=== PATIENT | male | born 1980 | race Caucasian/White ===

== ENCOUNTER 2017-09-15 06:07 | Inpatient (IN) ==
--- NOTE | 2017-09-14 22:27 | Discharge Summary ---
<Katy Rocha - Last Filed: 09/15/17 08:28> Date of Encounter: 09/15/17 - Discharge Diagnosis (1) Arthritis of left hip Priority: Primary Status: Chronic (2) HTN (hypertension) Priority: Secondary Status: Chronic Qualifiers: Hypertension type: unspecified Qualified Code(s): I10 - Essential (primary ) hypertension (3) Gout Priority: Secondary Status: Chronic Qualifiers: Gout site: unspecified site Gout etiology: unspecified cause Chronicity: unspecified Qualified Code(s): M10.9 - Gout, unspecified (4) MINDY (obstructive sleep apnea) Priority: Secondary Status: Chronic (5) Obesity Priority: Secondary Status: Chronic Qualifiers: Obesity type: unspecified obesity type Obesity classification: unspecified obesity classification Serious obesity comorbidity presence: unspecified whether serious comorbidity present Qualified Code(s): E66.9 - Obesity, unspecified (6) Diabetes Priority: Secondary Status: Chronic Qualifiers: Diabetes mellitus type: type 2 Diabetes mellitus termite treater helper insulin use: without care home use Diabetes mellitus complication status: with unspecified complications Qualified Code(s): E11.8 - Type 2 diabetes mellitus with unspecified complications (7) Neuropathy Priority: Secondary Status: Chronic - Hospital Course Hospital course: Mr. Irwin is a 36 year old male - Time Spent with Patient Total time spent providing and/or coordinating discharge services: - Discharge Medications Home Medications: Aspirin Enteric Coated [Aspirin EC] 325 mg PO BID 10 Days #20 tablet. [Rx] Lisinopril/Hydrochlorothiazide [Zestoretic 20-12.5 mg Tablet] 1 tab PO BID 09/15 [History] Metformin HCl [Glucophage Xr] 750 mg PO BID 09/15/17 [History] Oxycodone HCl 5 mg PO Q6H PRN 7 Days #28 tablet 09/15/17 [Rx] Allergies/Adverse Reactions: 3 Allergy/AdvReac Type Severity Reaction Status Date / Time No Known Allergies Allergy Verified 09/15/17 07:16 Primary care physician: Nikhil Watts - Patient Status Disposition: Home, Self-Care Condition: Good - Discharge Instructions Follow Up With: Nikhil Watts [Primary Care Provider] - <Lincoln Marques - Last Filed: 09/16/17 06:43> Orders not resulted at time of discharge: Pending orders 09/15/17 01:00 XR hip complete LT [XR] Routine Hemoglobin and Hematocrit [HEME] Routine Date of Encounter: 09/16/17 Time of Encounter: 06:42 - Discharge Diagnosis (1) Status post total hip replacement, left Priority: Primary Status: Acute (2) Arthritis of left hip Priority: Primary Status: Chronic (3) HTN (hypertension) Priority: Secondary Status: Chronic Qualifiers: Hypertension type: unspecified Qualified Code(s): I10 - Essential (primary ) hypertension (4) Gout Priority: Secondary Status: Chronic Qualifiers: Gout site: unspecified site Gout etiology: unspecified cause Chronicity: unspecified Qualified Code(s): M10.9 - Gout, unspecified (5) Diabetes Priority: Secondary Status: Chronic Qualifiers: Diabetes mellitus type: type 2 Diabetes mellitus termite treater helper insulin use: without termite treater helper use Diabetes mellitus complication status: with unspecified complications Qualified Code(s): E11.8 - Type 2 diabetes mellitus with unspecified complications (6) Neuropathy Priority: Secondary Status: Chronic (7) MINDY (obstructive sleep apnea) Priority: Secondary Status: Chronic (8) Morbid obesity with BMI of 40.0-44.9, adult Priority: Secondary Status: Chronic - Hospital Course Hospital course: Mr. Irwin is a 36 year old male Status post left total hip The patient had an uneventful postoperative course. They received antibiotics and physical therapy and were discharged in stable condition. There will follow -up in the office in 2 weeks. - Time Spent with Patient Total time spent providing and/or coordinating discharge services: Primary care physician: Nikhil Watts - Patient Status Functional capacity at discharge: uses cane/walker Overall status at discharge: patient is progressing back to baseline
[2017-09-15] MEDS ORDERED: CeFAZolin Syr 3,000MG/30 ML 3,000 MG/30 ML SYRINGE IVPB ONE (06:20)
[2017-09-15] MEDS ORDERED: Ringers Solution, Lactated 1,000 ML IVC SCH ×2 (06:30→10:43)
--- NOTE | 2017-09-15 06:37 | History & Physical Report ---
Date of Encounter: 09/15/17 Time of Encounter: 06:37 24 Hour HP Update - Instructions Instructions: If the History and Physical is less than 30 days old and was completed prior to A.M. admission and or procedure and has NOT been updated on calendar day of procedure please complete this update prior to performing procedure. - Update Patient reports changes in Medical Condition: No Changes in examination, assessment, or condition: No Changes in Medication: No Preop tests/diagnostics Reviewed: Yes Surgery Remains Indicated: Yes Consent for Planned Operative Procedure(s) Verified: Yes - Pre-Operative Checklist Preoperative Checklist Indicated: No Prophylactic Antibiotic Ordered: Yes Is VTE Prophylaxis Indicated?: Yes
--- NOTE | 2017-09-15 07:03 | Anesthesia Evaluation PreOp ---
Date of Encounter: 09/15/17 Time of Encounter: 07:01 - Past History Planned Operation: Left MARTA Cardiac History: HTN Pulmonary History: MINDY Dx (CPAP) BABY SITTER History: Denies Any Significant HX Other Medical History: Diabetes Type II, Other (Gout, Obesity) Anesthesia History: No Prior Anesthetic Complications, Past Anesthesia (Wrist) Alcohol Use: none Drug use: none Medications and Allergies Aspirin Enteric Coated [Aspirin EC] 325 mg PO BID 10 Days #20 tablet. [Rx] Oxycodone HCl 5 mg PO Q6H PRN 7 Days #28 tablet 09/14/17 [Rx] Lisinopril/Hydrochlorothiazide [Zestoretic 20-12.5 mg Tablet] 1 tab PO BID 09/15 [History] Metformin HCl [Glucophage Xr] 750 mg PO BID 09/15/17 [History] 3 Allergy/AdvReac Type Severity Reaction Status Date / Time No Known Allergies Allergy Verified 09/11/17 09:46 - Meds/Allergy Pre-op Review Medications Reviewed: Yes Allergies Reviewed: Yes Beta Blockers on Current Med List: No Anesthesia Results - Labs Laboratory Tests 09/11/17 09/11/17 09/11/17 10:03 10:10 10:10 Hgb 14.5 Plt Count 312 PT 13.4 H INR 1.2 APTT 32.9 Potassium 4.4 Creatinine 0.81 Est GFR (Non-Af Amer) > 60 09/04/2017: HbA1c 8.4% - Imaging EKG: report reviewed (SINUS RHYTHM LOW QRS VOLTAGE IN PRECORDIAL LEADS INCOMPLETE RIGHT BUNDLE BRANCH BLOCK POSSIBLE ANTERIOR MYOCARDIAL INFARCTION, PROBABLY OLD INFERIOR MYOCARDIAL INFARCTION, OF INDETERMINATE AGE) Anesthesia Exam O2 Sat Height 1.88 m Height 1.88 m Height 1.88 m Weight 150.593 kg Weight 150.593 kg Weight 150.593 kg BMI 43 Vital Signs Temp Pulse Resp BP Pulse Ox 98.0 F 84 18 150/93 95 09/15/17 06:30 09/15/17 06:30 09/15/17 06:30 09/15/17 06:30 09/15/17 06:30 NPO (# of Hours): 8 - HEENT Mallampati: II Teeth: Normal Oral Opening: Greater than 3 - Cardiac Rhythm: Regular - Pulmonary Breath Sounds: bilateral Clear Anesthesia Assess/Plan ASA Score: 3 Modified [place] Scale for Level of Consciousness: Cooperative, oriented, and tranquil Anesthetic Plan: General, Regional (SAB with fentanyl or morphine) Monitoring Plan: Standard Monitors Recovery Plan: PACU Anes Supervising Prov Stmt: Patient informed and consented. Risks, benefits, and alternatives discussed. Patient wishes to proceed.
[2017-09-15] MEDS ORDERED: *HR* FentaNYL (PF) 100 MCG/2 ML VIAL ONE ×2 (07:05→08:09)
[2017-09-15] MEDS ORDERED: *HR* Propofol 200 MG/20 ML VIAL IVP ONE ×2 (07:06→07:48)
[2017-09-15] MEDS ORDERED: *HR* Midazolam HCl 2 MG/2 ML VIAL ONE (07:06)
[2017-09-15] MEDS ORDERED: Ondansetron 4 MG/2 ML VIAL ONE (07:09)
[2017-09-15] MEDS ORDERED: Lidocaine -MPF 2% 2 ML VIAL ONE (07:09)
[2017-09-15] MEDS ORDERED: Dexamethasone 4 MG/ML VIAL ONE (07:09)
[2017-09-15] MEDS ORDERED: *HR* Succinylcholine 200 MG/10 ML VIAL IVP ONE (07:09)
[2017-09-15] MEDS ORDERED: Lidocaine -MPF 4% 5 ML AMPUL ONE (07:13)
[2017-09-15] MEDS ORDERED: Morphine Sulfate/PF 5mg/10mL Vial ONE (07:21)
[2017-09-15] MEDS ORDERED: Ethanol\\Acetic Acid\\Na Ace\\Ben 1,000 ML IRRIG.SOLN IR ONE (07:22)
[2017-09-15] MEDS ORDERED: *HR* Midazolam HCl 5 MG/5 ML VIAL IVP ONE (07:29)
--- NOTE | 2017-09-15 08:30 | Anesthesia Procedures ---
Date of Encounter: 09/15/17 Time of Encounter: 08:28 Procedures: Anesthesia - Epidural/Spinal Patient ID/Chart reviewed: Yes Patient examined: Yes Consent Obtained: Yes Supplemental Oxygen: Nasal Cannula Sedation: Versed (mg): 5 Sedation: Fentanyl (mcg): 100 Site Prep: Aseptic Technique, 0.5% Chlorhexidine/Alcohol Patient position: upright Local Anesthetic: Lidocaine 1% (3) Amount of Local Anesthetic used: 3 Interspace Used: L3-L4 Loss of Resistance (ISABELLA): No Blood: No CSF: Yes Paresthesia: No Spinal Needle Gauge: 25 Spinal Dose: marcaine 0.5% 3cc, duramorph 0.25 Procedure: aseptic, tolerated well, VSS, CSF clear x4 quads, effective
[2017-09-15] MEDS ORDERED: *HR* OxyCODONE Immed Rel 5 MG TABLET PO PRN ×2 (08:31→10:43)
[2017-09-15] MEDS ORDERED: *HR* FentaNYL (PF) 100 MCG/2 ML VIAL IVP PRN (08:31)
--- NOTE | 2017-09-15 08:58 | Orthopedic Operative Note ---
Date of procedure: 09/15/17 Pre-op diagnosis: Hip arthritis left Post-op diagnosis: same Procedure: Procedure: Left Total Hip Replacment robotic-assisted Estimated blood loss: 200 cc Hardware: Metal and polyethylene replacement. [place] DM Cup: 58 cup Femoral size 9 stem Head: +8 head with Brandy Procedural Notes: Grade 4 arthritic changes femoral head acetabular socket, procedure performed with robotic assistance. 5 mm shorter operative first nonoperative leg is measured by CT scan Operative procedure: The patient was brought to the operating room and placed on the operating room table. After general anesthesia was administered the patient was placed in the lateral decubitus position with the operative leg up. All pressure points were padded appropriately and the head was stabilized in the neutral position. The operative extremity was prepped and draped in the sterile surgical fashion patient received IV antibiotic prior to skin incision. 3 Steinmann pins were placed in the iliac crest 3 cm proximal to the anterior superior iliac spine this was for the robotic-assisted sensor. This was done through a small 2 cm incision. A standard posterior approach is made to the operative hip, the incision was made through the skin and subcutaneous tissue hemostasis was obtained with Bovie cautery. Using careful sharp dissection the fascia was identified and incised exposing the external rotators. The femoral checkpoint was placed leg length was measured at this time utilizing robotic assistance. The external rotators were released off the greater trochanter and tagged with # 2 FiberWire suture. The capsule was T'd open and the hip was brought into internal rotation. Patient noted to have grade 4 arthritic changes femoral head. The femoral neck cut was made at the appropriate level roughly 15 mm proximal to the lesser trochanter aced on preoperative templating. An anterior capsulotomy was performed for the anterior retractor. Soft tissues removed from the acetabulum. Patient noted to have grade 4 arthritic changes acetabulum. The acetabulum checkpoint was placed confirmed. The acetabulum was then mapped with robotic assistance. Based on the preoperative plan the acetabulum was reamed in one step with a 57 reamer. The 58 acetabulum was impacted with robotic assistance and 41 degrees of abduction and 19 degrees of anteversion. The hip was brought back in to internal rotation and prepared with the box toe maker followed by the canal finder followed by the reaming process to a size 9/ 10 broaching process in 20 degrees anteversion. It was broached up to the appropriate size 9. Trial reduction revealed leg lengths close to normal. The femoral implant was impacted in place in 20 degrees of anteversion. Trial reduction found the hip to be stable with 8 head and Brandy. The trials were removed and the real implants were impacted in place. The hip was reduced, patient had robotic confirmed leg length of 8 mm longer than the contralateral side. The hip had excellent stability with forward flexion to 90 degrees adduction of 30 degrees and internal rotation of 60 degrees. The hip had no shuck. The hips after 2 minutes with a antibacterial solution. It was irrigated out with 2 L of pulse irrigation. The checkpoints were removed, Steinmann pins were removed. The hip was closed by the PA. The deep tissue was irrigated and closed deep with #1 PDS suture superficially with 0 PDS suture and skin was closed with Dermabond and zip tie. The patient was placed in a sterile dressing and abduction pillow. The patient was extubated and transferred to the recovery room in stable condition. Anesthesia: GETA Surgeon: Lincoln Marques Was there an executive administrative assistant present: Yes Drawstring Knotter: Ludmila Gutierrez Estimated blood loss (cc): 200 Condition: stable Disposition: PACU
[2017-09-15] MEDS ORDERED: Neostigmine Methylsulfate 3 MG/3 ML SYRINGE ONE (09:07)
[2017-09-15 10:01] LABS: Hematocrit 41.8 % (37.5-50.1); Hemoglobin 13.5 g/dL (12.9-16.9)
[2017-09-15] MEDS ORDERED: *HR* PHENYLEPHRINE 1,000 MCG/10 ML SYRINGE IVP ONE (10:09)
[2017-09-15] MEDS ORDERED: Ondansetron 4 MG/2 ML VIAL IVP PRN ×3 (10:29→10:43)
[2017-09-15] MEDS ORDERED: Naloxone 0.4 MG/ML INJ IVP PRN ×3 (10:29→10:43)
--- NOTE | 2017-09-15 10:29 | Anesthesia Evaluation Post Op ---
Date of Encounter: 09/15/17 Time of Encounter: 10:28 - Vital Signs Vital Signs: Last Vital Signs Temp 97.2 F L 09/15/17 09:55 Pulse 64 09/15/17 10:15 Resp 18 09/15/17 10:15 BP 121/80 09/15/17 10:15 Pulse Ox 99 09/15/17 10:15 - Lungs Lungs: Clear Ascult./Percussion - Airway Airway: Non-obstructed - Cardiovascular Regular Rate - Mental Status Mental Status: Alert & Oriented, Answers Appropriately - Pain Pain Scale: 1 - Nausea Vomiting Nausea Vomiting: Not Present - Hydration Hydration: NPO - Discharge PostOp Status: Transfer Patient to floor
[2017-09-15] MEDS ORDERED: Sennosides 8.6 MG TABLET PO PRN (10:43)
[2017-09-15] MEDS ORDERED: D5% in Water 1,000 ML IVC PRN (10:43)
[2017-09-15] MEDS ORDERED: Temazepam 15 MG CAPSULE PO PRN (10:43)
[2017-09-15] MEDS ORDERED: *HR* Dextrose 50 % in Water (Syg) 50 ML SYRINGE IVP PRN (10:43)
[2017-09-15] MEDS ORDERED: MOM Conc 10 ML UD.LIQ PO PRN (10:43)
[2017-09-15] MEDS ORDERED: Dextrose Gel 15 GM/37.5 ML TUBE PO PRN ×2 (10:43)
[2017-09-15] MEDS ORDERED: *HR* OxyCODONE/APAP 5/325 TABLET PO PRN (10:43)
[2017-09-15] MEDS: METFORMIN HCL 750 MG PO SCH ×2 (11:26→17:27)
[2017-09-15] MEDS: Ascorbic Acid 500 MG TABLET PO SCH ×2 (11:26→17:27)
[2017-09-15] MEDS: Lisinopril-HCTZ 20-12.5mg TABLET PO SCH ×2 (11:27→20:45)
[2017-09-15] MEDS: CeFAZolin Syr 3,000MG/30 ML 3,000 MG/30 ML SYRINGE IVPB SCH ×2 (11:43→17:23)
[2017-09-15] MEDS: Insulin LISPRO 300 UNITS/3 ML VIAL SQ SCH ×2 (11:54→17:24)
[2017-09-15] MEDS: *HR* Enoxaparin 30 MG/0.3 ML SYRINGE SQ SCH (17:28)
[2017-09-15] MEDS ORDERED: *HR* Enoxaparin 30 MG/0.3 ML SYRINGE SQ SCH (18:00)
[2017-09-15] MEDS: traMADol 50 MG TABLET PO PRN (20:46)
[2017-09-15] MEDS ORDERED: Insulin LISPRO 300 UNITS/3 ML VIAL SQ SCH (21:00)
[2017-09-16 01:11] LABS: Hemoglobin 13.3 g/dL (12.9-16.9)
[2017-09-16 01:30] LABS: BUN/Creatinine Ratio 21 (6-26); Blood Urea Nitrogen 22 mg/dL (6-20); Calcium 8.7 mg/dL (8.6-10.3); Carbon Dioxide 24 mEq/L (23-29); Chloride 105 mEq/L (98-107); Glucose 152 mg/dL (70-105); Osmolality,Calculated 290 (280-300); Potassium 4.2 mEq/L (3.5-5.1); Sodium 137 mEq/L (136-145); eGFR For African Americans > 60 (> 60); eGFR For Non-African Americans > 60 (> 60)
[2017-09-16] MEDS: *HR* Enoxaparin 30 MG/0.3 ML SYRINGE SQ SCH (05:51)
--- NOTE | 2017-09-16 06:44 | Orthopedics Progress Note ---
Date of Encounter: 09/16/17 Time of Encounter: 06:43 - Assessment and Plan (1) Status post total hip replacement, left Current Visit: Yes Status: Acute (2) Arthritis of left hip Current Visit: No Status: Chronic (3) HTN (hypertension) Current Visit: No Status: Chronic Qualifiers: Hypertension type: unspecified Qualified Code(s): I10 - Essential (primary ) hypertension (4) Gout Current Visit: No Status: Chronic Qualifiers: Gout site: unspecified site Gout etiology: unspecified cause Chronicity: unspecified Qualified Code(s): M10.9 - Gout, unspecified (5) Diabetes Current Visit: No Status: Chronic Qualifiers: Diabetes mellitus type: type 2 Diabetes mellitus termite exterminator insulin use: without termite exterminator use Diabetes mellitus complication status: with unspecified complications Qualified Code(s): E11.8 - Type 2 diabetes mellitus with unspecified complications (6) Neuropathy Current Visit: No Status: Chronic (7) MINDY (obstructive sleep apnea) Current Visit: No Status: Chronic (8) Morbid obesity with BMI of 40.0-44.9, adult Current Visit: Yes Status: Chronic Subjective Interval history: Patient was seen this morning doing well without complaints. Afebrile vital signs stable. Operative extremity: Neurovascularly intact Dressing clean dry and intact Calves nontender Assessment and plan: Continue with postoperative care Hematocrit 40 discharged today Objective Vital signs: Vital Signs Temp Pulse Resp BP Pulse Ox 09/16/17 03:52 98.5 F 86 14 114/78 94 09/16/17 00:01 98.2 F 86 16 101/65 93 09/15/17 23:00 93 09/15/17 20:07 99.1 F 96 16 117/75 96 09/15/17 16:29 98.2 F 67 18 117/77 94 09/15/17 13:48 98.9 F 89 14 107/68 95 09/15/17 12:50 98.7 F 83 16 106/66 94 09/15/17 11:45 97.7 F 78 14 117/77 96 09/15/17 11:15 94 09/15/17 11:12 98.4 F 82 14 114/78 94 09/15/17 10:58 97.6 F 73 14 118/80 100 09/15/17 10:25 97.2 F L 68 18 121/71 99 09/15/17 10:15 64 18 121/80 99 09/15/17 10:05 68 18 106/73 100 09/15/17 09:55 97.2 F L 65 18 113/75 99 09/15/17 09:45 62 20 108/72 100 09/15/17 09:35 74 18 100/70 99 09/15/17 09:25 97.8 F 82 16 102/77 92 09/15/17 07:36 92 95 Intake and Output 09/15/17 09/15/17 09/16/17 15:59 23:59 07:59 Intake Total 1200 / 1200 Output Total 200 / 200 400 / 400 Balance -170 / -170 800 / 800 Intake: IV Fluids 1000 / 1000 Lactated Ringers 1,000 ML @ 75 1000 / 1000 mls/hr IVC .[id number] ROYA Rx#: [id number] Ancef Syringe 3,000 MG/30 ML 3, 30 / 30 000 mg In 30 ml @ 200 mls/hr IVPB Q8H ROYA Rx#:[id number] Oral 200 / 200 Output: Urine 400 / 400 Estimated Blood Loss 200 / 200 Other: # Voids 1 1 Blood Glucose* 129 194 - Labs CBC & BMP: 09/16/17 00:53 09/16/17 00:53 Labs: Abnormal lab results BUN 22 mg/dL (6-20) H 09/16/17 00:53 Glucose 152 mg/dL (70-105) H 09/16/17 00:53 POC Glucose 194 mg/dL (70-99) H 09/15/17 20:13 - VTE Documentation of Mechanical Device: Venous foot pump, device Consult Discharge Plan - Plan Referrals: Nikhil Watts [Primary Care Provider] -
[2017-09-16 07:41] VITALS: BP 112/70
[2017-09-16] MEDS: METFORMIN HCL 750 MG PO SCH (08:40)
[2017-09-16] MEDS: Insulin LISPRO 300 UNITS/3 ML VIAL SQ SCH (08:40)
[2017-09-16] MEDS: Ascorbic Acid 500 MG TABLET PO SCH (08:44)
[2017-09-16] MEDS: traMADol 50 MG TABLET PO PRN (08:45)
[2017-09-16] MEDS: Lisinopril-HCTZ 20-12.5mg TABLET PO SCH (08:45)
[2017-09-16] MEDS ORDERED: Multivit/Ca/Min/Fe/FA 1 TAB TABLET PO SCH (09:00)
== END 2017-09-16 12:51 | disposition home or self-care (01) | DRG 301 ==
LOC: SAMDAY 06:07 → 3NENU 10:43
PROVIDERS: ADMIT Orthopaedic Surgery; ATTEND Orthopaedic Surgery